=== PATIENT | female | born 1950 | race Caucasian/White ===

== ENCOUNTER → 2017-04-11 | Outpatient (CLI) | payer MEDICARE, BC ==
--- NOTE | 2017-04-12 01:05 | BD ---
EXAMINATION TYPE: MG DEXA axial skeleton. DATE OF EXAM: 04/11/2017 12:13 PM COMPARISON: NONE CLINICAL HISTORY: 66-year-old female asymptomatic postmenopausal state Height: 66 IN Weight: 198 LBS FRAX RISK QUESTIONS: Alcohol (3 or more units per day): NO Family History (Parent hip fracture): NO Glucocorticoids (More than 3mos): NO (Ex: prednisone, prednisolone, methylprednisolone, dexamethasone, and hydrocortisone). History of Fracture in Adulthood: YES LEFT FOOT AGE 61 AND RT WRIST AGE 54 Secondary Osteoporosis: 1. Type 1 Diabetes: NO 2. Hyperthyroidism: NO 3. Menopause before 45: YES TOTAL HYST. AGE 32 4. Malnutrition: NO 5. Chronic liver disease: NO Rheumatoid Arthritis: NO Current Tobacco Use: NO RISK FACTORS HISTORY OF: History of Wrist Fracture: YES RT WRIST When: AGE 54 Other Fractures since Age 49: YES LEFT FOOT AGE 61 When: AGE 61 Active: YES Diet low in dairy products/other sources of calcium: YES Postmenopausal woman: AGE 32 Take estrogen and/or progesterone medications: NOT NOW How long: AGE 32 -43 MEDICATIONS: Additional Medications: VIT, CHOLESTEROL MEDS,OMEPRAZOLE, BABY ASPIRIN EXAM MEASUREMENTS: Bone mineral densitometry was performed using the [employer] System. Bone mineral density as measured about the Lumbar spine is: ----- L1-L4(G/cm2): 1.087 T Score Values are as follows: ----- L2: -0.8 ----- L3: -0.7 ----- L4: -1.3 ----- L1-L4: -0.8 Bone mineral density BASELINE Bone mineral density about the R hip (g/cm2): 0.901 Bone mineral density about the L hip (g/cm2): 0.946 T Score values are as follows: -----R Neck: -1.0 -----L Neck: -0.7 -----R Total: -0.8 -----L Total: -1.0 Bone mineral density BASELINE IMPRESSION: Normal bone mineral density as measured in the lumbar spine and both hips. However, note that measure ments in these areas borderline on osteopenia with T score values of -1.0. Consider repeating this st udy in 5 years or sooner if there is some new clinical indication. NOTE: T-SCORE=SD OF THE YOUNG ADULT MEAN.
== END | disposition home or self-care (01) ==
LOC: RADBDWWP 12:11
PROVIDERS: ATTEND Family Medicine
DX: Z78.0 Asymptomatic menopausal state (principal)
CPT/HCPCS: 77080

== ENCOUNTER → 2017-05-18 | Outpatient (CLI) | payer MEDICARE, BC ==
--- NOTE | 2017-05-18 17:32 | MR ---
EXAMINATION TYPE: MR lumbar spine wo con DATE OF EXAM: 05/18/2017 COMPARISON: NONE HISTORY: LBP, Rt leg pain since January, no trauma/surgery TECHNIQUE: T1 and T2 axial and sagittal images of the lumbar spine are submitted. FINDINGS: There is no abnormal signal seen within the visualized spinal cord or paraspinal soft tissu es. At L1-2 there is degenerative disc disease. There is no canal stenosis. No foraminal encroachment. Th ere is a right sided nerve root sleeve diverticulum. At L2-3 there is mild degenerative disc disease and hypertrophic change of the facets with no canal s tenosis or disc herniation. No foraminal encroachment. At L3-4 there is hypertrophic change of the facets and ligamentum flavum with broad-based central dis c bulging. There is borderline canal stenosis. Neural foramina remain patent. At L4-5 there is central disc bulge or tiny protrusion with mild effacement of thecal sac. Neural for kezia remain patent. Borderline canal stenosis. Hypertrophic change of the facets and ligamentum flav um. At L5-S1 there is degenerative disc disease with more marked facet arthropathy. Minimal central and r ight paracentral disc bulging with no canal stenosis or foraminal encroachment. 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 IMPRESSION: 1. Multilevel degenerative disc disease and facet arthropathy. Disc bulging L3-4 and L4-5 result in b orderline canal stenosis with no foraminal encroachment. 2. Nerve root sleeve diverticulum on the right at L1-L2.
== END | disposition home or self-care (01) ==
LOC: RADMRIMAIN 15:03
PROVIDERS: ATTEND Family Medicine
DX: M48.06 Spinal stenosis, lumbar region (principal); M51.17 Intervertebral disc disorders with radiculopathy, lumbosacral region; M46.96 Unspecified inflammatory spondylopathy, lumbar region
CPT/HCPCS: 72148

== ENCOUNTER → 2018-09-21 | Outpatient (CLI) | payer MEDICARE, BC ==
--- NOTE | 2018-09-22 13:16 | MM ---
Reason for exam: screening (asymptomatic). Last mammogram was performed 2 years ago. History: Patient is postmenopausal. Family history of breast cancer in paternal grandmother at age 50, premenopausal breast cancer in maternal cousin at age 40, and breast cancer in maternal cousin. Took estrogen for 17 years beginning at age 32. Physical Findings: A clinical breast exam by your physician is recommended on an annual basis and results should be correlated with mammographic findings. MG 3D Screening Mammo W/Cad Bilateral CC and MLO view(s) were taken. Prior study comparison: September 20, 2016, bilateral MG 3d screening mammo w/cad. September 15, 2015, bilateral MG screening mammo w CAD. The breast tissue is heterogeneously dense. This may lower the sensitivity of mammography. There is no discrete abnormality. No significant changes when compared with prior studies. ASSESSMENT: Negative, BI-RAD 1 RECOMMENDATION: Routine screening mammogram of both breasts in 1 year.
== END | disposition home or self-care (01) ==
LOC: RADMAMWWP 09:25
PROVIDERS: ATTEND Family Medicine
DX: Z12.31 Encounter for screening mammogram for malignant neoplasm of breast (principal)
CPT/HCPCS: 77063; 77067

== ENCOUNTER → 2019-06-07 | Outpatient (CLI) | payer MEDICARE, BC ==
[2019-06-07 08:48] LABS: African American GFR (CKD) >90 (>60 ml/min/1.73 sqM); Blood Urea Nitrogen 17 mg/dL (7-17)
--- NOTE | 2019-06-07 19:29 | CT ---
EXAMINATION TYPE: CT chest w con DATE OF EXAM: 06/07/2019 COMPARISON: 08/29/2012 HISTORY: Pain in chest-posterior aspect CT DLP: 484 mGycm, Automated exposure control for dose reduction was used. CONTRAST: Performed injected with 100 mL of Isovue 300. TECHNIQUE: Axial images were obtained at 5 mm thick sections. Reconstructed images are reviewed on [employer] computer in the coronal plane. FINDINGS: Portion of the thyroid visualized is normal. Couple small nodular densities are in the posterior right upper lung field adjacent to the pleural ma rgin. The nodule measures 0.5 cm. This appears to have changed configuration. Previous linear appeara nce at this level has partially resolved. There is a small groundglass opacity measuring 0.8 cm in the posterior lateral right apex. No enlarged mediastinal or hilar adenopathy is evident. The ascending aorta diameter at the level o f the main pulmonary artery is 3.1 cm. The main pulmonary artery diameter at the bifurcation is 2.[address] sections are obtained through the upper abdomen. Abdomen is essentially unremarkable. Stim ulator leads are in the lower thoracic spinal canal. IMPRESSIONS: 1. Couple of small peripheral subtle changes posterior lateral right apex. Short-term follow-up in 3 months is recommended. 2. Suspicious abnormality to account for back pain not otherwise evident.
== END | disposition home or self-care (01) ==
LOC: RADCTMAIN 08:15
PROVIDERS: ATTEND Family Medicine
DX: R07.89 Other chest pain (principal)
CPT/HCPCS: 82565; 84520; 71260; 36415; Q9967

== ENCOUNTER → 2019-07-17 | Outpatient (CLI) | payer MEDICARE, BC ==
--- NOTE | 2019-07-17 09:59 | BD ---
EXAMINATION TYPE: Axial Bone Density DATE OF EXAM: 07/17/2019 COMPARISON: 2017 CLINICAL HISTORY: post menopausal Height: 5'5 1/2 Weight: 149 FRAX RISK QUESTIONS: History of Fracture in Adulthood: y Secondary Osteoporosis: 3. Menopause before 45: y RISK FACTORS HISTORY OF: History of Wrist Fracture: rt When: 2006 Surgery to Spine): lower spine When: 2018 Postmenopausal woman: y MEDICATIONS: Additional Medications: cholesterol Additional History: stimulator in back, generator in left hip EXAM MEASUREMENTS: Bone mineral densitometry was performed using the [employer] System. Bone mineral density about the R hip (g/cm2): 0.880 T Score values are as follows: -----R Neck: -1.1 -----R Total: -1.4 Bone mineral density has: Decreased -8.3% since study of: 04/11/2017 Bone mineral density about the L Wrist (g/cm2): 0.511 T Score values are as follows: -----Dist. R+U: -2.6 -----Prox. R+U: -2.2 -----Radius total: -2.7 IMPRESSION: Osteoporosis (T Score less than -2.5). There is increased fracture risk and therapy is usually indicated based on age. Re-Screen 1-2 years. NOTE: T-SCORE=SD OF THE YOUNG ADULT MEAN.
== END | disposition home or self-care (01) ==
LOC: RADBDWWP 09:07
PROVIDERS: ATTEND Family Medicine
DX: M81.0 Age-related osteoporosis without current pathological fracture (principal)
CPT/HCPCS: 77080

== ENCOUNTER → 2019-09-05 | Outpatient (CLI) | payer MEDICARE, BC ==
[2019-09-05 09:07] LABS: African American GFR (CKD) >90 (>60 ml/min/1.73 sqM); Blood Urea Nitrogen 13 mg/dL (7-17)
--- NOTE | 2019-09-05 12:25 | CT ---
EXAMINATION TYPE: CT chest w con DATE OF EXAM: 09/05/2019 COMPARISON: Prior CT chest 06/07/2019 HISTORY: Solitary pulmonary nodule CT DLP: 218 mGycm Automated exposure control for dose reduction was used. CONTRAST: CT scan of the chest is performed with IV Contrast, patient injected with 100 mL of Isovue 300. FINDINGS: LUNGS: The lungs are similar in appearance, some subcutaneous pleural nodularity is minimal on axial image #17, there may be some focal scarring, nodularity is less than 5 mm in size. There is no pleu ral effusion or pneumothorax seen. The tracheobronchial tree is patent. MEDIASTINUM: There are no greater than 1 cm hilar or mediastinal lymph nodes. No pericardial effusi on is seen. AORTA: No additional significant abnormality is seen. OTHER: Thoracic cord stimulator is again noted. Patient is post cholecystectomy. Low dense focus wit hin the lateral segment left lobe of the liver is stable.. IMPRESSION: Nodularities probably benign. Follow-up CT can be performed in 6-12 months to assess for stability or resolution.
== END | disposition home or self-care (01) ==
LOC: RADCTMAIN 08:08
PROVIDERS: ATTEND Family Medicine
DX: R91.8 Other nonspecific abnormal finding of lung field (principal)
CPT/HCPCS: 82565; 84520; 71260; 36415; Q9967

== ENCOUNTER → 2019-09-18 | Outpatient (CLI) | payer MEDICARE, BC ==
--- NOTE | 2019-09-18 16:15 | PN ---
PROGRESS NOTE SLEEP CENTER PROGRESS NOTE: This is a 69-year-old female patient with known history of obstructive sleep apnea. The patient was diagnosed several years back and she had severe disease with an AHI of 43. The patient did have fluctuation in her body weight over the years. She did gain weight. She was being treated with CPAP pressure of 8 cm of water and she was utilizing a ResMed S9 CPAP unit. After gaining a significant amount of weight, she was diagnosed having diabetes mellitus and she decided to lose weight. Currently she has lost around 60 pounds and currently she around 30 pounds less compared with 2016. Her current body weight is around 160. Despite that, she seems to be dependent on her CPAP treatment. On a few occasions when she did not use the treatment, she felt somnolent and sleepy and she was snoring. She is very much in need of her CPAP treatment for now. She tells me that she cannot get supplies. Also the machine has not been functioning well; the humidification chamber is malfunctioning and the patient is interested in updating her CPAP machine. She is using the AirFit P10 nose pillows. No new-onset comorbidities other than diabetes mellitus, which improved after weight loss. She has hyperlipidemia also in addition to heartburn/acid reflux, which is currently inactive and stable. No other significant events otherwise over the past 3 years. Her current [place] score is 15. REVIEW OF SYSTEMS: Fourteen-point review of systems was done. The patient snores and she has excessive fatigue and sleepiness if she does not use her CPAP unit. In general she is averaging around 8 hours of CPAP use per night. She has occasional grinding of the teeth. No sleepwalking. No dry mouth. No panic attacks. No palpitations. She does have occasional heartburn. No restlessness in the lower extremities. No sleeptalking. No sweating. No anxiety. No claustrophobia. No sexual dysfunction. No difficulty with memory and concentration. No irritability. No depression. PHYSICAL EXAMINATION: VITAL SIGNS: BP is 120/57, pulse 68, respirations 18, temperature 97.6, saturation 98% on room air. [place] score is 15. Neck size is 14-1/4 inches. Weight is 160. Height is 5 feet 6 inches, BMI 25.4. GENERAL APPEARANCE: Calm, comfortable. HEAD: Atraumatic, normocephalic. NECK: Supple. No JVD. No goiter or neck masses. LUNGS: Diminished. Otherwise clear. HEART: Heart sounds are regular rate and rhythm. Normal S1, S2. No S3, S4. No murmurs. ABDOMEN: Soft, nontender. No organomegaly. EXTREMITIES: No edema. No cyanosis or clubbing. IMPRESSION: 1. Severe obstructive sleep apnea with an apnea/hypopnea index of 43 based on a sleep study that was done many years back. The patient has lost weight, and despite that she is still in need of her CPAP machine. The pressure setting needs to be updated. The machine needs to be updated. The treatment has not been as successful as it used to be in the past. Humidification chamber of her machine is malfunctioning. 2. Obesity with interval weight loss. Current BMI is 25. The patient remains asymptomatic regarding obstructive sleep apnea. 3. Chronic hypersomnia. 4. Hyperlipidemia. 5. New-onset diabetes mellitus, improved with weight loss. Currently on no treatment. 6. Acid reflux. PLAN: 1. Encourage further weight loss. 2. Obviously the patient has symptomatic obstructive sleep apnea despite her weight loss. In regard to her need for an updated machine, I am going to ask the patient to come into the sleep center to undergo CPAP titration. Based on that, she will be given a new CPAP unit with an updated pressure. She would like to keep the same mask interface, which is AirFit P10 nose pillows. Will continue to follow. MARQUISE / TIERNEYN: [id number] /
== END | disposition home or self-care (01) ==
LOC: SLEEP 13:07
PROVIDERS: ATTEND Internal Medicine Critical Care Medicine
DX: G47.33 Obstructive sleep apnea (adult) (pediatric) (principal); E66.9 Obesity, unspecified; G47.19 Other hypersomnia; E78.5 Hyperlipidemia, unspecified; E11.9 Type 2 diabetes mellitus without complications; K21.9 Gastro-esophageal reflux disease without esophagitis; Z68.25 Body mass index [BMI] 25.0-25.9, adult
CPT/HCPCS: 99211

== ENCOUNTER → 2019-10-15 | Outpatient (CLI) | payer MEDICARE, BC ==
--- NOTE | 2019-10-16 09:51 | MM ---
Reason for exam: screening (asymptomatic). Last mammogram was performed 1 year and 1 month ago. History: Patient is postmenopausal. Family history of breast cancer in paternal grandmother at age 50, premenopausal breast cancer in maternal cousin at age 40, and breast cancer in maternal cousin. Took estrogen for 17 years beginning at age 32. Physical Findings: A clinical breast exam by your physician is recommended on an annual basis and results should be correlated with mammographic findings. MG 3D Screening Mammo W/Cad Bilateral CC and MLO view(s) were taken. Prior study comparison: September 21, 2018, bilateral MG 3d screening mammo w/cad. September 20, 2016, bilateral MG 3d screening mammo w/cad. The breast tissue is heterogeneously dense. This may lower the sensitivity of mammography. Benign appearing bilateral calcifications. No suspicious abnormality. No significant changes when compared with prior studies. ASSESSMENT: Benign, BI-RAD 2 RECOMMENDATION: Routine screening mammogram of both breasts in 1 year.
== END ==
LOC: RADMAMWWP 09:49
PROVIDERS: ATTEND Family Medicine
DX: Z12.31 Encounter for screening mammogram for malignant neoplasm of breast (principal)
CPT/HCPCS: 77063; 77067

== ENCOUNTER → 2020-04-28 | Outpatient (CLI) | payer MEDICARE, BC ==
[2020-04-28 09:08] LABS: African American GFR (CKD) >90 (>60 ml/min/1.73 sqM); Blood Urea Nitrogen 14 mg/dL (7-17); Non-African American GFR(CKD) >90 (>60 ml/min/1.73 sqM)
--- NOTE | 2020-04-28 10:17 | CT ---
EXAMINATION TYPE: CT chest w con DATE OF EXAM: 04/28/2020 COMPARISON: Chest CT September 05, 2019 and older CTs HISTORY: Solitary pulmonary nodule follow up. CT DLP: 222.1 mGycm. Automated Exposure Control for Dose Reduction was Utilized. TECHNIQUE: CT scan of the thorax is performed following with IV Contrast, patient injected with 100 mL of Isovue M300. FINDINGS: LUNGS: Focal reticular and slightly nodular scarring posterior inferior aspect right upper lobe sagit tunde image 46 for reference there is no significant change from prior studies even back through 2011. No suspicious enlarging nodules or masses. Dependent atelectasis bilateral lower lobes. There is no pleural effusion or pneumothorax seen bilaterally. The tracheobronchial tree is patent. MEDIASTINUM: There are no greater than 1 cm hilar or mediastinal lymph nodes. No cardiomegaly or pe ricardial effusion is seen. OTHER: Cholecystectomy clips are present. Stimulator device in the lower thoracic spinal canal noted. Mild multilevel anterior spurring. Slight scoliotic curvature IMPRESSION: No significant change from prior study. Findings strongly favor postinflammatory scarring .
== END | disposition home or self-care (01) ==
LOC: RADCTMAIN 08:16
PROVIDERS: ATTEND Family Medicine
DX: R91.8 Other nonspecific abnormal finding of lung field (principal)
CPT/HCPCS: 82565; 84520; 71260; 36415; Q9967

== ENCOUNTER → 2021-03-26 | Outpatient (CLI) | payer MEDICARE, BC ==
--- NOTE | 2021-03-27 15:00 | MM ---
Reason for exam: screening (asymptomatic). Last mammogram was performed 1 year and 5 months ago. History: Patient is postmenopausal. Family history of breast cancer in paternal grandmother at age 50, premenopausal breast cancer in maternal cousin at age 40, and breast cancer in maternal cousin. Took estrogen for 17 years beginning at age 32. Physical Findings: A clinical breast exam by your physician is recommended on an annual basis and results should be correlated with mammographic findings. MG 3D Screening Mammo W/Cad Bilateral CC and MLO view(s) were taken. Prior study comparison: October 15, 2019, bilateral MG 3d screening mammo w/cad. September 21, 2018, bilateral MG 3d screening mammo w/cad. The breast tissue is heterogeneously dense. This may lower the sensitivity of mammography. Benign appearing bilateral calcifications. No significant changes when compared with prior studies. ASSESSMENT: Benign, BI-RAD 2 RECOMMENDATION: Routine screening mammogram of both breasts in 1 year.
== END | disposition home or self-care (01) ==
LOC: RADMAMWWP 09:26
PROVIDERS: ATTEND Family Medicine
DX: Z12.31 Encounter for screening mammogram for malignant neoplasm of breast (principal); Z78.0 Asymptomatic menopausal state; Z80.3 Family history of malignant neoplasm of breast
CPT/HCPCS: 77063; 77067

== ENCOUNTER → 2021-09-10 | Outpatient (CLI) | payer MEDICARE, BC ==
--- NOTE | 2021-09-10 14:46 | BD ---
EXAMINATION TYPE: Axial Bone Density DATE OF EXAM: 09/10/2021 COMPARISON: Prior DEXA bone scan July 17, 2019 CLINICAL HISTORY: Postmenopausal female. Osteoporosis. Height: 66 Weight: 174.0 FRAX RISK QUESTIONS: Alcohol (3 or more units per day): no Family History (Parent hip fracture): no Glucocorticoids (More than 3mos): no (Ex: prednisone, prednisolone, methylprednisolone, dexamethasone, and hydrocortisone). History of Fracture in Adulthood: yes Secondary Osteoporosis: 1. Type 1 Diabetes: no 2. Hyperthyroidism: no 3. Menopause before 45: yes 4. Malnutrition: no 5. Chronic liver disease: no Rheumatoid Arthritis: no Current Tobacco Use: no RISK FACTORS HISTORY OF: Surgery to Spine/Hip(right/left)/Wrist (right/left): t-spine When: Family History of Osteoporosis: no Active: yes Diet low in dairy products/other sources of calcium: yes Postmenopausal woman: yes Lost more than 2 inches in height since high school: no Medications: aspirin, Januvia, pravastatin, calcium, fenofibrate Thyroid Medications: thyroid Additional History: EXAM MEASUREMENTS: Bone mineral densitometry was performed using the [employer] System. Bone mineral density as measured about the Lumbar spine is: ----- L1-L4(G/cm2): 1.040 T Score Values are as follows: ----- L2: -1.3 ----- L3: -1.1 ----- L4: -1.7 ----- L1-L4: -1.2 Bone mineral density has: decreased -1.4 % since study of: 04.11.2017 Bone mineral density about the R hip (g/cm2): 0.834 Bone mineral density about the L hip (g/cm2): 0.846 T Score values are as follows: -----R Neck: -1.5 -----L Neck: -1.4 -----R Total: -1.4 -----L Total: -1.5 Bone mineral density has: decreased -8.2 % since study of: 07.17.2019 Bone mineral density about the L Wrist (g/cm2): 0.530 T Score values are as follows: -----Dist. R+U: -2.4 -----Prox. R+U: -1.8 -----Radius total: -2.4 Bone mineral density has: increased 4.8 % since study of: 07.17.2019 IMPRESSION: Osteopenia (T Score between -2.5 and -1) remains present. There remains slightly increased risk of fracture and the patient may be considered for treatment. Re-Screen 2-5 years. NOTE: T-SCORE=SD OF THE YOUNG ADULT MEAN.
== END | disposition home or self-care (01) ==
LOC: RADBDWWP 12:28
PROVIDERS: ATTEND Family Medicine
DX: M81.0 Age-related osteoporosis without current pathological fracture (principal); M85.80 Other specified disorders of bone density and structure, unspecified site
CPT/HCPCS: 77080

== ENCOUNTER → 2022-03-31 | Outpatient (CLI) | payer MEDICARE, BC ==
--- NOTE | 2022-03-31 12:31 | MM ---
Reason for exam: screening (asymptomatic). Last mammogram was performed 1 year ago. History: Patient is postmenopausal. Family history of breast cancer in paternal grandmother at age 50, premenopausal breast cancer in maternal cousin at age 40, and breast cancer in maternal cousin. Took estrogen for 17 years beginning at age 32. Physical Findings: A clinical breast exam by your physician is recommended on an annual basis and results should be correlated with mammographic findings. MG 3D Screening Mammo W/Cad Bilateral CC and MLO view(s) were taken. Prior study comparison: March 26, 2021, bilateral MG 3d screening mammo w/cad. October 15, 2019, bilateral MG 3d screening mammo w/cad. The breast tissue is heterogeneously dense. This may lower the sensitivity of mammography. Stable vascular calcifications. There is no discrete abnormality. No significant changes when compared with prior studies. ASSESSMENT: Benign, BI-RAD 2 RECOMMENDATION: Routine screening mammogram of both breasts in 1 year.
== END | disposition home or self-care (01) ==
LOC: RADMAMWWP 09:11
PROVIDERS: ATTEND Family Medicine
DX: Z12.31 Encounter for screening mammogram for malignant neoplasm of breast (principal)
CPT/HCPCS: 77063; 77067

== ENCOUNTER 2023-04-12 07:43 | Day surgery (SDC) | payer MEDICARE, BC ==
[2023-04-08 08:52] VITALS: BMI 29.0
[~2023-04-12 07:43] MED LIST: LACTATED RINGERS 1,000 ML IV SCH; LIDOCAINE 1% (10MG/ML) FOR IV START INTRADERMA PRN
[2023-04-12 08:19] LABS: Glucose,Whole Blood 117 mg/dL (70-110)
[2023-04-12 08:23] VITALS: TEMP 97.1
[2023-04-12] MEDS ORDERED: LIDOCAINE 2% INJ 20 MG/ML (2 ML VIAL) ONE (08:41)
[2023-04-12] MEDS ORDERED: PROPOFOL 10 MG/ML 20 ML VIAL IV ONE (08:41)
--- NOTE | 2023-04-12 09:06 | P.PCN ---
Date of Procedure: 04/12/23 Procedure(s) Performed: BRIEF HISTORY: Patient is a 72-year-old pleasant white female scheduled for an elective colonoscopy as a part of screening for colon cancer and family history of colon cancer. Her brother was diagnosed with colon cancer at age 55 and mother at age 70. PROCEDURE PERFORMED: Colonoscopy with snare polyp rectum. PREOPERATIVE DIAGNOSIS: Screening for colon cancer and family history of colon cancer IV sedation per Anesthesia. PROCEDURE: After informed consent was obtained, the patient, was brought into the endoscopy unit. IV sedation was administered by Anesthesia under continuous monitoring. Digital rectal examination was normal. Initially the Olympus CF-160 flexible video colonoscope was then inserted in the rectum, gradually advanced into the cecum without any difficulty. Careful examination was performed as the scope was gradually being withdrawn. Ileocecal valve and the appendiceal orifice were visualized and appeared normal. Prep was excellent. Mucosa of the cecum, ascending colon, appeared normal. In the ascending colon there was a 7 mm polyp removed by snare polypectomy. In the hepatic flexure there was a 1 cm polyp removed by snare polypectomy. In the transverse colon there was another 1 m polyp removed by snare polypectomy. Rest of the. transverse colon, descending colon, sigmoid colon, and rectum appeared normal. Retroflexion was performed in the rectum and no lesions were seen. Scattered sigmoid diverticulosis The patient tolerated the procedure well. IMPRESSION: 1 cm hepatic flexure polyp status post polypectomy 7 mm ascending colon polyp status post polypectomy 1 cm transverse colon polyp status post polypectomy 5 mm sigmoid polyp status post polypectomy Scattered sigmoidal RECOMMENDATIONS: Findings of this examination were discussed with the patient as well as her family. She was advised to follow with the biopsy results. If Adenoma she can have a repeat colonoscopy in 3 years
[2023-04-12 09:13] VITALS: RESP 16
[2023-04-12 09:29] VITALS: BP 142/65; PULSE 61
== END 2023-04-12 09:55 | disposition home or self-care (01) ==
LOC: ORWHC2ENDO 07:43
PROVIDERS: ATTEND Internal Medicine Gastroenterology
DX: Z12.11 Encounter for screening for malignant neoplasm of colon (principal); K57.30 Diverticulosis of large intestine without perforation or abscess without bleeding; D12.2 Benign neoplasm of ascending colon; D12.3 Benign neoplasm of transverse colon; E78.5 Hyperlipidemia, unspecified; K21.9 Gastro-esophageal reflux disease without esophagitis; E11.9 Type 2 diabetes mellitus without complications; Z86.010 Personal history of colon polyps; Z79.84 Long term (current) use of oral hypoglycemic drugs
CPT/HCPCS: 88305; 45385; J2704; J2001

== ENCOUNTER → 2023-04-22 | Outpatient (CLI) | payer MEDICARE, BC ==
--- NOTE | 2023-04-26 07:35 | MM ---
Reason for Exam: Screening (asymptomatic). Last screening mammogram was performed 12 month(s) ago. Patient History: Menarche at age 10. First Full-Term at age 17. Left ovary removed at age 32. Right ovary removed at age 32. Hysterectomy at age 32. Postmenopausal. Estrogen for 17 years from age 32 until age 49. Paternal grandmother had breast cancer, age 50. Maternal cousin had breast cancer, age 40. Maternal cousin had breast cancer. Risk Values: Domitila 5 year model risk: 1.4%. NCI Lifetime model risk: 3.4%. Prior Study Comparison: 10/15/2019 Bilateral Screening Mammogram, [facility]. 03/26/2021 Bilateral Screening Mammogram, [facility]. 03/31/2022 Bilateral Screening Mammogram, [facility]. Tissue Density: There are scattered fibroglandular densities. Findings: Analyzed By CAD. There is no suspicious group of microcalcifications or new suspicious mass in either breast. Overall Assessment: Negative, BI-RAD 1 Management: Screening Mammogram of both breasts in [address] [facility] will attempt to contact patient to return for supplemental views and ultrasound if indicated. Patient should continue monthly self-breast exams. A clinical breast exam by your physician is recommended on an annual basis. This exam should not preclude additional follow-up of suspicious palpable abnormalities. Note on Domitila scores and lifetime risk: 1. A Domitila score greater than 3% is considered moderate risk. If this is the case, consider specialist referral to assess eligibility for a risk reducing agent. 2. If overall lifetime risk for the development of breast cancer is 20% or higher, the patient may qualify for future screening with alternating mammogram and breast MRI. Electronically signed and approved by: Enzo Zurita DO
== END | disposition home or self-care (01) ==
LOC: RADMAMWWP 09:03
PROVIDERS: ATTEND Family Medicine
DX: Z12.31 Encounter for screening mammogram for malignant neoplasm of breast (principal); Z78.0 Asymptomatic menopausal state; Z80.3 Family history of malignant neoplasm of breast
CPT/HCPCS: 77063; 77067

== ENCOUNTER → 2023-09-13 | Outpatient (CLI) | payer MEDICARE, BC ==
--- NOTE | 2023-09-13 13:04 | BD ---
EXAMINATION TYPE: Axial Bone Density DATE OF EXAM: 09/13/2023 CLINICAL HISTORY: 73 years old Female. ICD-10 CODE: M89.9 DISORDER OF BONE, UNSPECIFIED Height: 66" Weight: 186lbs FRAX RISK QUESTIONS: Alcohol (3 or more units per day): No Family History (Parent hip fracture): No Glucocorticoids (More than 3mos): No (Ex: prednisone, prednisolone, methylprednisolone, dexamethasone, and hydrocortisone). History of Fracture in Adulthood: Yes Secondary Osteoporosis: 1. Type 1 Diabetes: No 2. Hyperthyroidism: no 3. Menopause before 45: Yes, 32 4. Malnutrition: No 5. Chronic liver disease: No Rheumatoid Arthritis: No Current Tobacco Use: No RISK FACTORS HISTORY OF: Hip Fracture (Right/Left): No Spine Fracture: No History of Wrist Fracture: No Surgery to Spine/Hip(right/left)/Wrist (right/left): No Family History of Osteoporosis: No Active: Yes Diet low in dairy products/other sources of calcium: Yes Postmenopausal woman: Yes Lost more than 2 inches in height since high school: No Frequent falls: No Poor Health: No Hyperparathyroidism: No Adrenal Insufficiency: No MEDICATIONS: Prednisone or other steroids: No Thyroid Medications: No Osteoporosis Medications: No Additional Medications: Calcium, Magnesium, Vitamin, Omeprazole, Statin for cholesterol, as pirin Additional History: None EXAM MEASUREMENTS: Bone mineral densitometry was performed using the [employer] System. Bone mineral density as measured about the Lumbar spine is: ----- L1-L4(G/cm2): 1.086 T Score Values are as follows: ----- L1: -0.3 ----- L2: -1.5 ----- L3: -0.7 ----- L4: -0.8 ----- L1-L4: -0.8 Z Score Values are as follows: ----- L1: 0.8 ----- L2: -0.4 ----- L3: 0.4 ----- L4: 0.3 ----- L1-L4: 0.3 Bone mineral density has: increased 4.4% since study of: 09/10/2021 Bone mineral density about the R hip (g/cm2): 0.832 Bone mineral density about the L hip (g/cm2): 0.829 T Score values are as follows: -----R Neck: -1.4 -----L Neck: -1.0 -----R Total: -1.4 -----L Total: -1.4 Z Score values are as follows: -----R Neck: 0.1 -----L Neck: 0.4 -----R Total: -0.2 -----L Total: -0.2 Bone mineral density has: increased 0.6% since study of: 09/10/2021 FRAX%s: The graph provided illustrates a 16.0% chance for a major osteoporotic fx and a 2.6% chance f or the hips probability for fx in 10 years time. IMPRESSION: Osteopenia (T Score between -2.5 and -1). There is slightly increased risk of fracture and the patient may be considered for treatment. Re-Screen 2-5 years. NOTE: T-SCORE=SD OF THE YOUNG ADULT MEAN.
== END | disposition home or self-care (01) ==
LOC: RADBDWWP 09:00
PROVIDERS: ATTEND Family Medicine
DX: M85.89 Other specified disorders of bone density and structure, multiple sites (principal); Z78.0 Asymptomatic menopausal state
CPT/HCPCS: 77080

== ENCOUNTER → 2024-05-29 | Outpatient (CLI) | payer MEDICARE, BC ==
--- NOTE | 2024-06-02 17:33 | MM ---
Reason for Exam: Screening (asymptomatic). Last mammogram was performed 1 year(s) and 2 month(s) ago. Patient History: Menarche at age 10. First Full-Term at age 17. Left ovary removed at age 32. Right ovary removed at age 32. Hysterectomy at age 32. Postmenopausal. Estrogen for 17 years from age 32 until age 49. Paternal grandmother had breast cancer, age 50. Maternal cousin had breast cancer, age 40. Maternal cousin had breast cancer. Risk Values: Domitila 5 year model risk: 1.4%. NCI Lifetime model risk: 3.2%. Prior Study Comparison: 03/26/2021 Bilateral Screening Mammogram, [facility]. 03/31/2022 Bilateral Screening Mammogram, [facility]. 04/22/2023 Bilateral MG 3D screening mammo w/cad, [facility]. Tissue Density: The breasts are heterogeneously dense, which may obscure small masses. Findings: Analyzed By CAD. Benign bilateral vascular calcifications. There is no suspicious group of microcalcifications or new suspicious mass in either breast. Overall Assessment: Benign, BI-RAD 2 Management: Screening Mammogram of both breasts in 1 year. . Patient should continue monthly self-breast exams. A clinical breast exam by your physician is recommended on an annual basis. This exam should not preclude additional follow-up of suspicious palpable abnormalities. Note on Domitila scores and lifetime risk: 1. A Domitila score greater than 3% is considered moderate risk. If this is the case, consider specialist referral to assess eligibility for a risk reducing agent. 2. If overall lifetime risk for the development of breast cancer is 20% or higher, the patient may qualify for future screening with alternating mammogram and breast MRI. Electronically signed and approved by: Ramos Ortiz M.D. Radiologist
== END | disposition home or self-care (01) ==
LOC: RADMAMWWP 14:17
PROVIDERS: ATTEND Family Medicine
DX: Z12.31 Encounter for screening mammogram for malignant neoplasm of breast (principal); Z78.0 Asymptomatic menopausal state; Z80.3 Family history of malignant neoplasm of breast
CPT/HCPCS: 77063; 77067

== ENCOUNTER → 2025-02-25 | Outpatient (CLI) | payer MEDICARE, BC ==
--- NOTE | 2025-02-25 13:33 | US ---
EXAMINATION TYPE: US venous doppler duplex LE DATE OF EXAM: 02/25/2025 1:20 PM COMPARISON: US 2012 CLINICAL INDICATION: Female, 74 years old with history of M79.89 OTHER SOFT TISSUE DISORDER; Patient takes aspirin. Swelling intermittently x a couple years. TECHNIQUE: The lower extremity deep venous system is examined utilizing real time linear array sonog christopher with graded compression, color doppler sonography, and spectral doppler. SIDE PERFORMED: Bilateral FINDINGS: VESSELS IMAGED: Common Femoral Vein Deep Femoral Vein Greater Saphenous Vein * Femoral Vein Popliteal Vein Small Saphenous Vein * Proximal Calf Veins (* superficial vessels) Right Leg: Internal echoes seen in popliteal vein that appear to be chronic, hx chronic DVT in 2012 ultrasound. Left Leg: Internal echoes seen in popliteal vein that appear to be chronic, hx chronic DVT in 2012 u ltrasound. , IMPRESSION: 1. No acute deep vein thrombosis. 2. 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 [facility], , 02/25/2025 1:31 PM
== END | disposition home or self-care (01) ==
LOC: RADUSWWP 12:46
PROVIDERS: ATTEND Family Medicine
DX: I82.533 Chronic embolism and thrombosis of popliteal vein, bilateral (principal); M79.89 Other specified soft tissue disorders; Z79.82 Long term (current) use of aspirin
CPT/HCPCS: 93970